=== PATIENT | male | born 1985 | race Caucasian/White ===

== ENCOUNTER → 2016-08-02 | Outpatient (CLI) | payer OTHER ==
--- NOTE | 2016-08-03 04:11 | REP ---
Clinical: Pain and venous insufficiency. Technique: Rousseau scale and color Doppler evaluation using linear high frequency transducer. Findings: Ultrasound examination of the right lower extremity deep venous structures from the common femoral vein to the popliteal vein demonstrates normal compressibility flow and wave patterns in response to respiration and augmentation. There is no evidence for deep venous thrombosis. Reflux study demonstrates normal vasculature without evidence for reflux or collateral vessels. Impression: No evidence for deep venous thrombosis. No evidence for venous insufficiency/reflux. Signed by Thompson Hutchinson MD 08/03/2016 04:03 A
== END ==
LOC: M RAD 12:57
PROVIDERS: ATTEND Nurse Practitioner Family
DX: R60.0 Localized edema (principal)

== ENCOUNTER → 2016-08-05 | Outpatient (CLI) | payer OTHER ==
--- NOTE | 2016-08-06 06:03 | REP ---
Clinical: Edema and lower extremity pain . Technique: Rousseau scale and color Doppler evaluation using linear high frequency transducer. Findings: Ultrasound examination of the left lower extremity deep venous structures from the common femoral vein to the popliteal vein demonstrates normal compressibility flow and wave patterns in response to respiration and augmentation. There is no evidence for deep venous thrombosis. Reflux evaluation demonstrates normal flow patterns and direction through the deep venous structures, and greater saphenous vein. Impression: No evidence for deep venous thrombosis. No evidence for reflux disease or insufficiency. Signed by Thompson Hutchinson MD 08/06/2016 05:54 A
== END ==
LOC: M RAD 11:47
PROVIDERS: ATTEND Nurse Practitioner Family
DX: R60.0 Localized edema (principal)

== ENCOUNTER → 2016-08-31 | Outpatient (REF) | payer OTHER ==
[2016-08-31 12:22] LABS: BASO % 0.5 % (0.0-1.0); EOS # 0.1 K/mm3 (0.0-0.50); EOS % 1.6 % (0.0-3.0); LARGE UNSTAINED CELL # 0.2 K/mm3 (0.0-0.4); LARGE UNSTAINED CELL % 2.2 % (0.0-4.0); LYMPH # 3.2 K/mm3 (1.5-6.5); LYMPH % 43.1 % (24.0-44.0); MEAN CORPUSCULAR HGB CONC 33.6 g/dl (32.0-36.5); MEAN CORPUSCULAR VOLUME 95.2 fl (80.0-96.0); MONO # 0.6 K/mm3 (0.0-0.8); MONO % 7.3 % (0.0-5.0); NEUTROPHILS # 3.4 K/mm3 (1.8-7.7); NEUTROPHILS % 45.3 % (36.0-66.0); PLATELET COUNT, AUTOMATED 319 k/mm3 (150-450); RED CELL DISTRIBUTION WIDTH 12.7 % (11.5-14.5); WHITE BLOOD COUNT 7.5 K/mm3 (4.0-10.0)
[2016-08-31 12:44] LABS: ALBUMIN 3.8 GM/DL (3.2-5.2); ALBUMIN/GLOBULIN RATIO 1.23 (1.00-1.93); ALKALINE PHOSPHATASE 28 U/L (45-117); ALT/SGPT 53 U/L (12-78); ANION GAP 6 MEQ/L (8-16); AST/SGOT 24 U/L (15-37); BILIRUBIN,TOTAL 0.6 MG/DL (0.2-1.0); BLOOD UREA NITROGEN 13 MG/DL (7-18); CALCIUM LEVEL 8.5 MG/DL (8.5-10.1); CARBON DIOXIDE LEVEL 30 MEQ/L (21-32); CHLORIDE LEVEL 106 MEQ/L (98-107); CHOLESTEROL LEVEL 187 MG/DL (<200); CREATININE FOR GFR 0.77 MG/DL (0.70-1.30); GLOMERULAR FILTRATION RATE > 60.0 (>60); GLUCOSE, FASTING 83 MG/DL (70-105); POTASSIUM SERUM 4.4 MEQ/L (3.5-5.1); SODIUM LEVEL 142 MEQ/L (136-145); TOTAL PROTEIN 6.9 GM/DL (6.4-8.2); TRIGLYCERIDES LEVEL 227 MG/DL (<150)
== END ==
LOC: M SFHCPLAZ 08:50
PROVIDERS: ATTEND Nurse Practitioner Family
DX: F41.8 Other specified anxiety disorders (principal); R60.0 Localized edema; E66.01 Morbid (severe) obesity due to excess calories

== ENCOUNTER → 2016-09-17 | Outpatient (CLI) | payer OTHER ==
[~2016-09-17] MED LIST: ALBU83IN INH; BACL10TA2 PO; HYDR25T PO; IPRASOL4 IN; NAPR500T PO; PRED20TA PO; TESS100C PO; meloxicam
--- NOTE | 2016-09-21 23:45 | ECWPNPC ---
PATIENT NAME: SEFERINO PABLO : 1985 GENDER: MALE VISIT DATE: 09/17/2016 DISCHARGE DATE: 09/17/16 1439 VISIT LOCKED DATE TIME: PHYSICIAN: AUGUSTIN LEVIN RESOURCE: AUGUSTIN LEVIN REASON FOR APPOINTMENT 1. THORACIC BACK PAIN HISTORY OF PRESENT ILLNESS NEW PATIENT CONSULT: WHEN DID YOUR PAIN FIRST START? . BRIEFLY DESCRIBE HOW YOUR PAIN STARTED? . HOW DOES YOUR PAIN CHANGE WITH TIME? . DOES YOUR PAIN AWAKEN YOU FROM SLEEP? . HOW MANY HOURS OF SLEEP DO YOU NORMALLY GET? . ANY DIAGNOSTIC TESTING? . FACILITY WHERE TESTS WERE DONE? ____. PAIN TREATMENT TREATMENT YES CANCER HAVE YOU EVER HAD ANY TYPE OF CANCER?NO NO. PAIN SCREENING: PATIENT HAS A COMPLAINT OF ACUTE OR CHRONIC PAIN :YES FALL RISK SCREENING: SCREENING :NO FALLS IN THE PAST YEAR PEARSON INVENTORY: QUESTIONNAIRE ASSESSEDYES SCORE VALUE CALCULATED YES SCORE: 24/63 NOTES SADNESS AND ANXIETY - DENIES SUICIDAL OR HOMICIDAL IDEATION TODAY'S VISIT: NOTES: REFERRED TO [facility] BY SILVA FERNANDEZ NP FOR MID THORACIC PAIN . HAS BEEN HAVING PAIN FOR 4-5 YEARS AND THIS HAS BEEN GETTING UNCONTROLLABLE FOR THE LAST 6 MONTHS. NOTES INCREASED PAIN WITH PROLONGED STANDING, SITTING. NO POSITION IS REALLY COMFORTABLE. SLEEP IS DISRUPTED. PAIN IS CENTERED ON SPINE AND FEELS LIKE A REALLY TWISTED. STATES FEELS SHARP AND STABBING PAIN ON THE SPINE. HAS PAIN INTO LEFT BUTTUCK AND COCCYX BUT NOT TO LEGS. NO N/T IN LEGS. IS HAAVING RIB DISCOMFORT FROM "MISPLACED RIBS" IN LOWER RIB CAGE. WAS SEEN BY CHIROPRACTER AND WAS TREATED BY PHYSICAL THERAPY.. GETS NECK PAIN AND ASSOCIATED HEADACHES. NO NUMBNESS/TINGLINGT INTO HANDS. REPORTS PAIN IN BACK AND RIBS WITH DEEP BREATH. HAS HAD SEVERAL INJURIES TO NECK AND BACK A TEEN. HAS BEEN TREATED WITH A NECK BRACE SEVERAL TIMES AFTER INJURIES. RATES PAIN LEVEL TODAY 9/10. DESCRIBES PAIN CONSTANT, SHARP, ACHING, SHOOTING, THROBBING AND SORE. PAIN IS CENTERED AT BASE OF NECK AND DOWN THE CENTER THORACIC SPINE.. CURRENT MEDICATIONS TAKING MELOXICAM 7.5 MG TABLET 1 TABLET ORALLY ONCE A DAY, NOTES: JUST STARTING ON THIS TAKING ACETAMINOPHEN EXTRA STRENGTH 500 MG TABLET 1 TABLET NEEDED ORALLY EVERY 6 HRS NOT-TAKING CYCLOBENZAPRINE HCL 10 MG TABLET 1 TABLET NEEDED ORALLY THREE TIMES A DAY, NOTES: DID NOT WORK AT ALL NOT-TAKING IBUPROFEN 200 MG TABLET 1 TABLET WITH FOOD OR MILK NEEDED ORALLY EVERY 6 HRS NOT-TAKING DICLOFENAC SODIUM 75 MG TABLET DELAYED RELEASE 1 TABLET ORALLY TWICE A DAY NOT-TAKING ROBAXIN-750 750 MG TABLET 1 TABLET ORALLY EVERY 4 HRS MEDICATION LIST REVIEWED AND RECONCILED WITH THE PATIENT PAST MEDICAL HISTORY PSORIASIS (DIAGNOSED 2009) CHILDHOOD ASTHMA ALLERGIES SULFA (FOR ALLERGY USE ONLY): RASH: ALLERGY PERTUSSIS: NEAR A CHILD: ALLERGY MINT: RASH AROUND LIPS: ALLERGY RED DYE: RASH: ALLERGY SURGICAL HISTORY TONSILLECTOMY 1995 FAMILY HISTORY FATHER: ALIVE 56 YRS, THYROID DISORDER MOTHER: ALIVE 50 YRS, HTN, INCREASED ICP, BRAIN SURGERY RECENTLY, PSUEDOTUMOR CEREBRI MATERNAL GRAND FATHER: DE (A TOTAL OF 25) AT AGE 65, FIRST AROUND 40. MATERNAL AUNT: DMT1 SOCIAL HISTORY GENERAL: TOBACCO USE ARE YOU A:CURRENT SMOKER HOW MANY CIGARETTES A DAY DO YOU SMOKE?6-10 HOW OFTEN DO YOU SMOKE CIGARETTES?EVERY DAY PATIENT COUNSELED ON THE DANGERS OF TOBACCO USE AND URGED TO QUIT:09/17/2016 ARE YOU INTERESTED IN QUITTING?READY TO QUIT COUNSELED THE PATIENT ON TOBACCO USE, CESSATION MHCICEFY58/23/2017 ALCOHOL SCREENING POINTS0 INTERPRETATIONNEGATIVE CAFFEINE CAFFEINE USE?YES BAPTIST [id number] ISLAM LANGUAGE LANGUAGES SPOKEN:CZECH LEARNING BARRIERS / SPECIAL NEEDS HEARING IMPAIRED?NO VISION IMPAIRED?NO READINESS TO LEARN?YES PAIN CLINIC PFS, CLERGY, PUBLIC HEALTH REFERRALS PFS REFERRAL NEEDED?NO CLERGY REFERRAL NEEDED?NO PUBLIC HEALTH REFERRAL NEEDED?NO WAS THE PROVIDER NOTIFIED OF ANY PERTINENT INFO?NO HAS THE PATIENT BEEN EDUCATED REGARDING HIS/HER PLAN OF CARE?YES HAS THE PATIENT BEEN EDUCATED REGARDING PAIN, THE RISK FOR PAIN, THE IMPORTANCE OF EFFECTIVE PAIN MANAGEMENT, AND THE PAIN ASSESSMENT PROCESS?YES PATIENT: ____. ADVANCE DIRECTIVES HEALTH CARE PROXY?NO WOULD YOU LIKE MORE INFORMATION?NO DOES NOT CURRENTLY HAVE PAPERWORK BUT IS PLANNING TO WORK ON THIS WITH HIS FAMILY SOON. HOSPITALIZATION/MAJOR DIAGNOSTIC PROCEDURE REACTION TO PERTUSSIS REVIEW OF SYSTEMS REVIEWED BY: PROVIDER: AUGUSTIN KENNY . CONSTITUTIONAL: ANY CHANGE IN YOUR MEDICAL CONDITION? NO . CHILLS NO . FEVER NO . INFECTION: DO YOU HAVE NEW INFECTIONS? NO . DO YOU HAVE HISTORY OF MRSA? NO . MUSCULOSKELETAL: ANY NEW PATTERNS OF PAIN OR NUMBNESS? YES, NECK PAIN CAUSING HEADACHES . SYTEMIC LUPUS NO . GASTROENTEROLOGY: ANY NEW CHANGE IN BOWEL CONTROL? NO . BARRETTS ESOPHAGUS NO . CIRRHOSIS NO . HEPATITIS NO . LIVER FAILURE NO . ACID REFLUX NO . UNEXPLAINED WEIGHT LOSS NO, IS WORKING TO LOSE WEIGHT (NO CREAM OR SUGAR IN COFFEE) . GENITOURINARY: ANY NEW CHANGE IN BLADDER CONTROL? NO . IS THERE A CHANCE YOU COULD BE ? NO . HEMATOLOGY/LYMPH: DO YOU TAKE ANY BLOOD THINNERS? (FOR EXAMPLE- COUMADIN, PLAVIX, AGGRENOX, PLATEL, PRADAXA, OR XARELTO) NO . WHEN WAS YOUR LAST DOSE? DATE: TIME: . LOW PLATELET COUNT NO . SICKLE CELL DISEASE NO . VON WILLIEBRANDS NO . FACTOR V LEIDEN NO . THALLASEMIA NO . ANEMIA NO . EASY BRUISING NO . NEUROLOGY: HAVE YOU FALLEN IN THE PAST 6 MONTHS? NO . ANY NEW EXTREMITY NUMBNESS OR WEAKNESS? NO . HEAD INJURY NO . DEMENTIA NO . CEREBRAL PALSY NO . MULTIPLE SCLEROSIS NO . DIZZINESS NO . HEADACHE YES, ASSOCIATED WITH NECK PAIN . STROKES NO . VERTIGO NO . CARDIOLOGY: DO YOU HAVE A PACEMAKER OR DEFIBRILLATOR? NO . ANGINA NO . HEART ATTACK NO . HEART SURGERY NO . CONGESTIVE HEART FAILURE/FLUID OVERLOAD NO . CHEST PAIN NO . HIGH BLOOD PRESSURE NO , HE DOES NOT HAVE BUT YES IN FAMILY HISTORY . IRREGULAR HEART BEAT NO . RESPIRATORY: HAVE YOU BEEN SICK IN THE PAST WEEK? NO . FEVER NO . FLU LIKE SYMPTOMS? NO . CPAP NO . BYPAP NO . ASTHMA YES . EMPHYSEMA NO . CHRONIC LUNG DISEASES NO . SHORTNESS OF BREATH ON EXERTION NO . DO YOU USE ANY TYPE OF TOBACCO (SMOKE, SMOKELESS, CHEW)? YES, CURRENTLY SMOKING 10 PER DAY (DOWN FROM A PACK A DAY) AND WORKING ON QUITTING SMOKING (ON HIS OWN TERMS). . COUGH NO . SNORING NO . INTEGUMENTARY: DO YOU HAVE ANY RASHES OR OPEN SORES? CAT BITES AND PT HAS PSORIASIS ESPECIALLY ON HIS HANDS . ALLERGIC/IMMUNO: ARE YOU ALLERGIC TO SHELLFISH OR IV DYE? NO . ANY NEW ALLERGIES? NO . PSYCHIATRIC: DO YOU HAVE THOUGHTS OF HURTING YOURSELF OR SOMEONE ELSE? NO . ARE YOU ABUSED, NEGLECTED, OR IN AN UNSAFE ENVIRONMENT? NO HAS HX OF MODERATE TO SEVERE DEPRESSION AND WAS ON HYDROXYZINE BUT NOT FOR PAST 2 MONTHS. (UNAWARE OF THE DOSE) HAS HX OF PANIC ATTACKS . ENDOCRINOLOGY: ARE YOU DIABETIC? NO . THYROID DISORDER NO . OTHER: DO YOU NEED ANY PRESCRIPTIONS? NO . IF YES, PLEASE LIST: ____ . ANY NEW PROBLEMS WITH YOUR MEDICATIONS? NO . WHEN DID YOU LAST EAT? ____ . WHEN DID YOU LAST DRINK? ____ . WHAT DID YOU LAST DRINK? ____ . NAME OF PERSON DRIVING YOU HOME? ____ . DO YOU HAVE ANY OTHER QUESTIONS OR CONCERNS NO . PSYCHOLOGY: HIGH STRESS LEVEL HAS BEEN VERY ACTIVE IN THE CARE AND SUPPORT OF HIS MOM WITH HER RECENT ILLNESS . VITAL SIGNS WT 299.6 LBS, HT 75.25 IN, BMI 37.19 INDEX, BP 133/82 MM HG, HR 76 /MIN, RR 16 /MIN, TEMP 98.9 F, OXYGEN SAT % 95%, NA INITIALS TR 1302, REVIEWED BY: NL. EXAMINATION GENERAL EXAMINATION: GENERAL APPEARANCE:OBESE, WEARING GLOVES ON BOTH HANDS. PSYCHQUIET, , ALERT , ORIENTED X 3 , APPROPRIATE MOOD AND AFFECT , GOOD EYE CONTACT, GOOD HISTORIAN. HEENT:NORMOCEPHALIC, NO LYMPHADENOPATHY, NO THYROMEGLY. LUNGS:CLEAR TO AUSCULTATION AND PERCUSSION, NO WHEEZES, RALES OR RHONCHI. , DECREASED AIR ENTRY AT BASES WITH DECREASED THORACIC EXPANSION OF CHEST WALL. HEART:HEART RATE REGULAR, NO CAROTID BRUITS, , NORMAL S1S2, NO MURMURS, CLICK OR RUBS. MUSCULOSKELETAL:POINT TENDERNESS OVER THORACIC SPINOUS PROCESSES AT T5-7 AND LUMBAR SPINOUS PROCESSES AT L4-5 REGION . ABLE TO FLEX AND EXTEND THE SPINE ONLY 10 DEGREES. HOLDS POSTURE VERY STIFFLY. TRIGGER POINTS: AND TIGHT FIBROUS BANDS IDENTIFIED OVER MID THORACIC PARASPINOUS MUSCLES AND ALONG THE SCAPULA BILATERALLY. MUSCLE STRENGTH TESTING 5/5 BILATERAL UPPER AND LOWER EXTREMITIES, GAIT ANTALGIC WITH LEFT FOOT/ANKLE ROLLING AND WEAKNESS. PROMOTIONS INTERN STRENGTH EQUAL AND STRONG. SKIN:SCALY PSORIASIS PLAQUES NOTED ACROSS THE PALMS BILATERALLY.. NEUROLOGIC EXAM:CN'S II-XII GROSSLY INTACT. PATCHY DYSESTHESIS NOTES OVER RIGHT FOREAAM AND LEFT CALF. DTR'S 3+BILATERALLY IN UPPER AND LOWER EXTREMITIES. PLANTAR RESPONSE IS FLEXOR. NO CLONUS.. ASSESSMENTS NECK PAIN - M54.2 (PRIMARY) THORACIC SPINE PAIN - M54.6 CERVICAL RADICULOPATHY DUE TO INTERVERTEBRAL DISC DISORDER - M50.10 THORACIC RADICULOPATHY - M54.14 TREATMENT NECK PAIN START BACLOFEN TABLET, 10 MG, 1 TABLET WITH FOOD OR MILK, ORALLY, BID, 30 DAY(S), 60 TABLET, REFILLS 2 START HYDROXYZINE HCL TABLET, 25 MG, 1 TABLET NEEDED, ORALLY, EVERY 8 HRS, 30 DAY(S), 90, REFILLS 1 LAB: ERYTHROCYTE SEDIMENTATION RATE LAB: LUPUS TYPE ANTICOAGULANT SCREE LAB: RHEUMATOID FACTOR QUANT LAB: RALF TITER & PATTERN [facility] MRI SPINE, CERVICAL WITHOUT [id number],SUSAN M 09/17/2016 2:26:02 PM > DECREASED CERVICAL ROM, CERVICAL RADICULOPATHY [facility] MRI SPINE,THORACIC WITHOUT [id number],SUSAN M 09/17/2016 2:26:41 PM > THORACIC PAIN/RADICULOPATHY CLINICAL NOTES: DISCUSSED OPTIONS FOR TREATMENT WITH SEFERINO - ROSANNE STATES HE IS VERY AFRAID OF NEEDLES AND AT THIS TIME IS NOT INTERESTED IN INTERVENTIONAL TREATMENT. HE HADS BEEN TRIALED WITH MUSCLE RELAXERS AND NSAIDS FR MORE THAN 6 WEEKS WEEKS WELL PHYSICAL THERAPY. AT THIS TIME WE ARE RESPECTFULLY REQUESTING AUTHORIZATION FOR MRI OF CERVICAL AND THORACIC MRI. HE HAS HAD MULTIPLE TRAUMAS TO THE NECK AND CHEST AND SIGNIFICANT PSORIASIS. HE HAS A FAMILY HISTORY OF AUTOIMMUNE DISEASE. PROCEDURE CODES FA211 ESTABILISHED PATIENT [facility] CHARGE DISPOSITION & COMMUNICATION FOLLOW UP 1 MONTH (REASON: CHECK AUTH FOR MRI OF THORACIC AND LUMBAR SPINE) ELECTRONICALLY SIGNED BY MILAGROS SHARMA ON 09/21/2016 AT 09:06 AM EDT DISCLAIMER : THIS IS A VISIT SUMMARY EXTRACTED FROM THE [employer] [employer] CHART. IT IS NOT A COPY OF THE [facility] [employer] PROGRESS NOTE. SANDRITA
== END | disposition home or self-care (01) ==
LOC: M PAIN 13:20
PROVIDERS: ATTEND Nurse Practitioner Family
DX: G89.29 Other chronic pain (principal); M54.6 Pain in thoracic spine; M50.10 Cervical disc disorder with radiculopathy, unspecified cervical region; L40.9 Psoriasis, unspecified; Z79.899 Other long term (current) drug therapy; Z88.2 Allergy status to sulfonamides; Z88.8 Allergy status to other drugs, medicaments and biological substances; Z91.018 Allergy to other foods; F17.210 Nicotine dependence, cigarettes, uncomplicated

== ENCOUNTER 2016-09-20 15:34 | Emergency (ER) | payer OTHER ==
[~2016-09-20] VITALS: Ht 193 cm; Wt 132.9 kg
[2016-09-20] MEDS ORDERED: BACL10TA2 PO (15:50)
[2016-09-20] MEDS ORDERED: HYDR-3363 PO (15:50)
[2016-09-20] MEDS ORDERED: meloxicam (15:50)
[2016-09-20] MEDS ORDERED: IPRATROPIUM 0.5MG/ALBUTEROL 2.5MG INH SOL UD 3ML (DUONEB)(J7620) NEB ONE ×2 (16:15→16:45)
[2016-09-20] MEDS ORDERED: NAPROXEN 250 MG TAB PO ONE (16:15)
--- NOTE | 2016-09-20 16:40 | REP ---
Clinical: Shortness of breath with cough and fever . Comparison: 12/12/2015 . Technique: PA and lateral. Findings: The mediastinum and cardiac silhouette are normal. The lung gaines are clear and without acute consolidation, effusion, or pneumothorax. The skeletal structures are intact and normal. Impression: 1. No acute cardiopulmonary process. Signed by Thompson Hutchinson MD 09/20/2016 04:31 P
[2016-09-20] MEDS ORDERED: predniSONE 20 MG TAB PO ONE (16:45)
[2016-09-20] MEDS ORDERED: PRED20TA PO (17:13)
[2016-09-20] MEDS ORDERED: IPRASOL4 IN (17:13)
[2016-09-20] MEDS ORDERED: ALBU83IN INH (17:13)
[2016-09-20] MEDS ORDERED: TESS100C PO (17:13)
[2016-09-20] MEDS ORDERED: NAPR500T PO (17:13)
[2016-09-20 17:21] VITALS: BP 130/76
== END 2016-09-20 17:23 | disposition home or self-care (01) ==
LOC: M ED 16:27
DX: F17.210 Nicotine dependence, cigarettes, uncomplicated (principal); J40 Bronchitis, not specified as acute or chronic; J45.909 Unspecified asthma, uncomplicated; G89.29 Other chronic pain; M54.9 Dorsalgia, unspecified; Z79.899 Other long term (current) drug therapy; Z91.018 Allergy to other foods; Z88.7 Allergy status to serum and vaccine

== ENCOUNTER 2016-09-30 15:16 | Emergency (ER) | payer OTHER ==
[~2016-09-30] VITALS: Ht 193 cm; Wt 136.7 kg
[~2016-09-30 15:16] MED LIST changes: +HYDR-3363 PO; -HYDR25T PO
[2016-09-30 15:17] VITALS: BP 132/77
[2016-09-30] MEDS ORDERED: IPRATROPIUM 0.5MG/ALBUTEROL 2.5MG INH SOL UD 3ML (DUONEB)(J7620) NEB ONE (15:45)
--- NOTE | 2016-09-30 16:06 | REP ---
Chest two views HISTORY: Cough Comparison: 09/20/2016 The lungs are clear. The heart is normal in size. The pulmonary vasculature is normal in appearance. The bony structure is intact. IMPRESSION: No acute disease. Signed by Flakito Gaston MD 09/30/2016 03:57 P
[2016-09-30] MEDS ORDERED: TESS100C PO (16:17)
[2016-09-30] MEDS ORDERED: ZITHTAB PO (16:17)
[2016-09-30] MEDS ORDERED: LIDO2SOL10 MT (16:17)
[2016-09-30] MEDS ORDERED: ALBU83IN INH (16:17)
== END 2016-09-30 16:05 | disposition home or self-care (01) ==
LOC: M ED 15:16
DX: J20.9 Acute bronchitis, unspecified (principal); J45.909 Unspecified asthma, uncomplicated; E66.9 Obesity, unspecified; F17.210 Nicotine dependence, cigarettes, uncomplicated; Z88.2 Allergy status to sulfonamides; Z91.02 Food additives allergy status; Z91.018 Allergy to other foods; Z88.7 Allergy status to serum and vaccine; Z79.899 Other long term (current) drug therapy

== ENCOUNTER → 2016-10-13 | Outpatient (CLI) | payer OTHER ==
[~2016-10-13] MED LIST changes: +LIDO2SOL10 MT; +ZITHTAB PO
--- NOTE | 2016-10-14 08:33 | REP ---
MRI CERVICAL SPINE WITHOUT CONTRAST: HISTORY: Neck pain. A disc bulge is present at the C3-4 level. There is minimal effacement of the thecal sac without spinal cord compression. The C3 neural foramina are patent. A disc bulge is present at the C4-5 level. There is minimal effacement of the thecal sac without spinal cord compression. The C4 neural foramina are patent. A disc bulge is present at the C5-6 level. There is minimal effacement of the thecal sac without spinal cord compression. The C5 neural foramina are patent. A disc bulge is present at the C6-7 level. There is minimal effacement of the thecal sac without spinal cord compression. The C6 neural foramina are patent. There is no other disc bulge or herniation. The remaining neural foramina are patent. The spinal cord is normal in signal intensity. Normal signal intensity is present in the cervical vertebral bodies. IMPRESSION: There is cervical spondylosis at the C3-4 through C6-7 levels without spinal cord compression. Signed by Flakito Gaston MD 10/14/2016 08:53 A
--- NOTE | 2016-10-14 08:34 | REP ---
MRI THORACIC SPINE WITHOUT CONTRAST: HISTORY: Neck pain. The spinal canal is congenitally small. There is no disc bulge or herniation. The spinal canal and neural foramina are patent. The spinal cord is normal in signal intensity. Normal signal intensity is present in the thoracic vertebral bodies. IMPRESSION: There is no disc bulge or herniation. Signed by Flakito Gaston MD 10/14/2016 08:53 A
== END ==
LOC: M RAD 16:50
PROVIDERS: ATTEND Nurse Practitioner Family
DX: M54.2 Cervicalgia (principal)

== ENCOUNTER → 2016-10-15 | Outpatient (CLI) | payer OTHER ==
--- NOTE | 2016-11-12 01:58 | ECWPNPC ---
PATIENT NAME: SEFERINO PABLO : 1985 GENDER: MALE VISIT DATE: 10/15/2016 DISCHARGE DATE: 10/15/16 1222 VISIT LOCKED DATE TIME: PHYSICIAN: AUGUSTIN LEVIN RESOURCE: AUGUSTIN LEVIN REASON FOR APPOINTMENT 1. THORACIC/LUMBAR SPINE HISTORY OF PRESENT ILLNESS HISTORY OF PRESENT ILLNESS: PAIN THE PATIENT DESCRIBES THE PAIN... FALL RISK SCREENING: SCREENING :NO FALLS IN THE PAST YEAR TODAY'S VISIT: NOTES: ONSET OF BRONCHITIS 3 WEEKS AGO AND WAS COUGHING WITH INCREASED AND INTENSE PAIN IN RIGHT RIBS. NO RASH. RATES PAIN /10 / DESCRIBES PAIN CONSTANT, SHARP STABBING AND SHOOTING. . CURRENT MEDICATIONS TAKING MELOXICAM 7.5 MG TABLET 1 TABLET ORALLY ONCE A DAY, NOTES: JUST STARTING ON THIS TAKING ACETAMINOPHEN EXTRA STRENGTH 500 MG TABLET 1 TABLET NEEDED ORALLY EVERY 6 HRS TAKING BACLOFEN 10 MG TABLET 1 TABLET WITH FOOD OR MILK ORALLY BID TAKING HYDROXYZINE HCL 25 MG TABLET 1 TABLET NEEDED ORALLY EVERY 8 HRS TAKING NAPROSYN 250 MG TABLET 1 TABLET ORALLY TWICE A DAY TAKING ALBUTEROL SULFATE 0.63 MG/3ML NEBULIZATION SOLUTION 3 ML NEEDED INHALATION EVERY 6 HRS, NOTES: FOR BRONCHIATUS NOT-TAKING CYCLOBENZAPRINE HCL 10 MG TABLET 1 TABLET NEEDED ORALLY THREE TIMES A DAY, NOTES: DID NOT WORK AT ALL NOT-TAKING IBUPROFEN 200 MG TABLET 1 TABLET WITH FOOD OR MILK NEEDED ORALLY EVERY 6 HRS NOT-TAKING DICLOFENAC SODIUM 75 MG TABLET DELAYED RELEASE 1 TABLET ORALLY TWICE A DAY NOT-TAKING ROBAXIN-750 750 MG TABLET 1 TABLET ORALLY EVERY 4 HRS MEDICATION LIST REVIEWED AND RECONCILED WITH THE PATIENT PAST MEDICAL HISTORY PSORIASIS (DIAGNOSED 2009) CHILDHOOD ASTHMA ALLERGIES SULFA (FOR ALLERGY USE ONLY): RASH: ALLERGY PERTUSSIS: NEAR A CHILD: ALLERGY MINT: RASH AROUND LIPS: ALLERGY RED DYE: RASH: ALLERGY REVIEW OF SYSTEMS REVIEWED BY: PROVIDER: AUGUSTIN KENNY . CONSTITUTIONAL: ANY CHANGE IN YOUR MEDICAL CONDITION? NO . CHILLS NO . FEVER NO . INFECTION: DO YOU HAVE NEW INFECTIONS? NO . DO YOU HAVE HISTORY OF MRSA? NO . MUSCULOSKELETAL: ANY NEW PATTERNS OF PAIN OR NUMBNESS? YES, RIGHR RIB AREA AND INTO BACK FOR PAST 4-5 DAYS / PROBABLY RELATED TO COUGHING SO MUCH . GASTROENTEROLOGY: ANY NEW CHANGE IN BOWEL CONTROL? NO . GENITOURINARY: ANY NEW CHANGE IN BLADDER CONTROL? NO . IS THERE A CHANCE YOU COULD BE ? NO . HEMATOLOGY/LYMPH: DO YOU TAKE ANY BLOOD THINNERS? (FOR EXAMPLE- COUMADIN, PLAVIX, AGGRENOX, PLATEL, PRADAXA, OR XARELTO) NO . WHEN WAS YOUR LAST DOSE? DATE: TIME: . NEUROLOGY: HAVE YOU FALLEN IN THE PAST 6 MONTHS? NO . ANY NEW EXTREMITY NUMBNESS OR WEAKNESS? NO . CARDIOLOGY: DO YOU HAVE A PACEMAKER OR DEFIBRILLATOR? NO . RESPIRATORY: HAVE YOU BEEN SICK IN THE PAST WEEK? YES, BRONCHIATUS WITH SEVERE COUGHING . FEVER NO . FLU LIKE SYMPTOMS? NO . COUGH NO . INTEGUMENTARY: DO YOU HAVE ANY RASHES OR OPEN SORES? NO . ALLERGIC/IMMUNO: ARE YOU ALLERGIC TO SHELLFISH OR IV DYE? NO . ANY NEW ALLERGIES? NO . PSYCHIATRIC: DO YOU HAVE THOUGHTS OF HURTING YOURSELF OR SOMEONE ELSE? NO . ARE YOU ABUSED, NEGLECTED, OR IN AN UNSAFE ENVIRONMENT? NO . ENDOCRINOLOGY: ARE YOU DIABETIC? NO . OTHER: DO YOU NEED ANY PRESCRIPTIONS? NO . IF YES, PLEASE LIST: ____ . ANY NEW PROBLEMS WITH YOUR MEDICATIONS? NO . WHEN DID YOU LAST EAT? ____ . WHEN DID YOU LAST DRINK? ____ . WHAT DID YOU LAST DRINK? ____ . NAME OF PERSON DRIVING YOU HOME? ____ . DO YOU HAVE ANY OTHER QUESTIONS OR CONCERNS NO . VITAL SIGNS WT 295 LBS, HT 75.25 IN, BMI 36.62 INDEX, BP 122/82 MM HG, HR 69 /MIN, RR 16 /MIN, TEMP 97.2 F, OXYGEN SAT % 94%, NA INITIALS TL 1157. EXAMINATION GENERAL EXAMINATION: CHEST:EXQUISITELY TENDER ACROSS RIGHT POST ERIOR CHEST WALL.. LUNGS:BILATERAL WHEEZES, RIGHT > LEFT. CERVICALPOINT TENDER OVER MID CERVICAL SPINOUS PROCESSES. ASSESSMENTS NECK PAIN - M54.2 (PRIMARY) THORACIC SPINE PAIN - M54.6 CERVICAL RADICULOPATHY DUE TO INTERVERTEBRAL DISC DISORDER - M50.10 THORACIC RADICULOPATHY - M54.14 TREATMENT NECK PAIN START TRAMADOL HCL TABLET, 50 MG, 1 TABLET NEEDED, ORALLY, EVERY 4 HRS PRN PAIN MDD=2, 30 DAY(S), 60, REFILLS 1 NOTES: DO SHOULDER ROLLS AND CHIN TUCK EXERCISES EVERY DAY. PROCEDURE CODES FA211 ESTABILISHED PATIENT [facility] CHARGE DISPOSITION & COMMUNICATION FOLLOW UP 2 MONTHS (REASON: NECK THORACIC PAIN) ELECTRONICALLY SIGNED BY MILAGROS SHARMA ON 11/11/2016 AT 07:55 PM EDT DISCLAIMER : THIS IS A VISIT SUMMARY EXTRACTED FROM THE [employer] CHART. IT IS NOT A COPY OF THE [employer] PROGRESS NOTE. SANDRITA
== END ==
LOC: M PAIN 10:40
PROVIDERS: ATTEND Nurse Practitioner Family
DX: M54.2 Cervicalgia (principal); M54.6 Pain in thoracic spine; G89.29 Other chronic pain; Z79.899 Other long term (current) drug therapy; Z88.2 Allergy status to sulfonamides; Z91.048 Other nonmedicinal substance allergy status; Z91.018 Allergy to other foods

== ENCOUNTER → 2016-12-17 | Outpatient (CLI) | payer OTHER ==
--- NOTE | 2017-01-15 01:00 | ECWPNPC ---
PATIENT NAME: SEFERINO PABLO : 1985 GENDER: MALE VISIT DATE: 12/17/2016 DISCHARGE DATE: 12/17/16 1555 VISIT LOCKED DATE TIME: PHYSICIAN: AUGUSTIN LEVIN RESOURCE: AUGUSTIN LEVIN REASON FOR APPOINTMENT 1. THORACIC/NECK HISTORY OF PRESENT ILLNESS HISTORY OF PRESENT ILLNESS: PAIN THE PATIENT DESCRIBES THE PAIN... FALL RISK SCREENING: SCREENING :NO FALLS IN THE PAST YEAR TODAY'S VISIT: NOTES: RATES PAIN LEVEL TODAY 9/10. DESCRIBES PAIN CONSTANT, ACHING, SHARP AND STABBING SHOOTING AND THROBBING. MARKED INCREASE IN PAIN IN TAILBONE OVER LAST WEEK, AND OVER NECK, BACK AND RIBS WITH PAIN OVER LEFT SIDE OF NECK. NO FALLS OR INJERIES. CURRENT MEDICATIONS TAKING MELOXICAM 7.5 MG TABLET 1 TABLET ORALLY ONCE A DAY, NOTES: JUST STARTING ON THIS TAKING ACETAMINOPHEN EXTRA STRENGTH 500 MG TABLET 1 TABLET NEEDED ORALLY EVERY 6 HRS TAKING BACLOFEN 10 MG TABLET 1 TABLET WITH FOOD OR MILK ORALLY BID TAKING NAPROSYN 250 MG TABLET 1 TABLET ORALLY TWICE A DAY TAKING ALBUTEROL SULFATE 0.63 MG/3ML NEBULIZATION SOLUTION 3 ML NEEDED INHALATION EVERY 6 HRS, NOTES: FOR BRONCHIATUS TAKING TRAMADOL HCL 50 MG TABLET 1 TABLET NEEDED ORALLY EVERY 6 HRS PRN MDD2 TAKING TRAMADOL HCL 50 MG TABLET 1 TABLET NEEDED ORALLY EVERY 4 HRS PRN PAIN MDD=2 TAKING HYDROXYZINE HCL 25 MG TABLET 1 TABLET NEEDED ORALLY EVERY 8 HRS NOT-TAKING CYCLOBENZAPRINE HCL 10 MG TABLET 1 TABLET NEEDED ORALLY THREE TIMES A DAY, NOTES: DID NOT WORK AT ALL NOT-TAKING IBUPROFEN 200 MG TABLET 1 TABLET WITH FOOD OR MILK NEEDED ORALLY EVERY 6 HRS NOT-TAKING DICLOFENAC SODIUM 75 MG TABLET DELAYED RELEASE 1 TABLET ORALLY TWICE A DAY NOT-TAKING ROBAXIN-750 750 MG TABLET 1 TABLET ORALLY EVERY 4 HRS MEDICATION LIST REVIEWED AND RECONCILED WITH THE PATIENT PAST MEDICAL HISTORY PSORIASIS (DIAGNOSED 2009) CHILDHOOD ASTHMA ALLERGIES SULFA (FOR ALLERGY USE ONLY): RASH: ALLERGY PERTUSSIS: NEAR A CHILD: ALLERGY MINT: RASH AROUND LIPS: ALLERGY RED DYE: RASH: ALLERGY SURGICAL HISTORY TONSILLECTOMY 1995 SOCIAL HISTORY GENERAL: TOBACCO USE ARE YOU A:CURRENT SMOKER HOW OFTEN DO YOU SMOKE CIGARETTES?EVERY DAY HOW MANY CIGARETTES A DAY DO YOU SMOKE?6-10 ARE YOU INTERESTED IN QUITTING?READY TO QUIT PATIENT COUNSELED ON THE DANGERS OF TOBACCO USE AND URGED TO QUIT:09/17/2016 COUNSELED THE PATIENT ON TOBACCO USE, CESSATION [id number]/23/2017 ALCOHOL SCREENING DID YOU HAVE A DRINK CONTAINING ALCOHOL IN THE PAST YEAR?NO POINTS0 INTERPRETATIONNEGATIVE CAFFEINE CAFFEINE USE?YES BUDDHIST [id number] BUDDHISM LANGUAGE LANGUAGES SPOKEN:BELARUSIAN LEARNING BARRIERS / SPECIAL NEEDS HEARING IMPAIRED?NO VISION IMPAIRED?NO READINESS TO LEARN?YES PAIN CLINIC PFS, CLERGY, PUBLIC HEALTH REFERRALS PFS REFERRAL NEEDED?NO CLERGY REFERRAL NEEDED?NO PUBLIC HEALTH REFERRAL NEEDED?NO WAS THE PROVIDER NOTIFIED OF ANY PERTINENT INFO?NO HAS THE PATIENT BEEN EDUCATED REGARDING HIS/HER PLAN OF CARE?YES HAS THE PATIENT BEEN EDUCATED REGARDING PAIN, THE RISK FOR PAIN, THE IMPORTANCE OF EFFECTIVE PAIN MANAGEMENT, AND THE PAIN ASSESSMENT PROCESS?YES PATIENT: ____. ADVANCE DIRECTIVES HEALTH CARE PROXY?NO WOULD YOU LIKE MORE INFORMATION?NO DOES NOT CURRENTLY HAVE PAPERWORK BUT IS PLANNING TO WORK ON THIS WITH HIS FAMILY SOON. HOSPITALIZATION/MAJOR DIAGNOSTIC PROCEDURE REACTION TO PERTUSSIS REVIEW OF SYSTEMS REVIEWED BY: PROVIDER: AUGUSTIN KENNY . CONSTITUTIONAL: ANY CHANGE IN YOUR MEDICAL CONDITION? NO . CHILLS NO . FEVER NO . INFECTION: DO YOU HAVE NEW INFECTIONS? NO . DO YOU HAVE HISTORY OF MRSA? NO . MUSCULOSKELETAL: ANY NEW PATTERNS OF PAIN OR NUMBNESS? YES, TAILBONE PAIN X1-2 WEEKS. PT CANNOT ASSOCIATE PAIN WITH ANY INJURIES OR ACTIVITIES. . GASTROENTEROLOGY: ANY NEW CHANGE IN BOWEL CONTROL? NO . GENITOURINARY: ANY NEW CHANGE IN BLADDER CONTROL? NO . IS THERE A CHANCE YOU COULD BE ? NO . HEMATOLOGY/LYMPH: DO YOU TAKE ANY BLOOD THINNERS? (FOR EXAMPLE- COUMADIN, PLAVIX, AGGRENOX, PLATEL, PRADAXA, OR XARELTO) NO . WHEN WAS YOUR LAST DOSE? DATE: TIME: . NEUROLOGY: HAVE YOU FALLEN IN THE PAST 6 MONTHS? NO . ANY NEW EXTREMITY NUMBNESS OR WEAKNESS? NO . CARDIOLOGY: DO YOU HAVE A PACEMAKER OR DEFIBRILLATOR? NO . RESPIRATORY: HAVE YOU BEEN SICK IN THE PAST WEEK? NO . FEVER NO . FLU LIKE SYMPTOMS? NO . COUGH NO . INTEGUMENTARY: DO YOU HAVE ANY RASHES OR OPEN SORES? NO . ALLERGIC/IMMUNO: ARE YOU ALLERGIC TO SHELLFISH OR IV DYE? NO . ANY NEW ALLERGIES? NO . PSYCHIATRIC: DO YOU HAVE THOUGHTS OF HURTING YOURSELF OR SOMEONE ELSE? NO . ARE YOU ABUSED, NEGLECTED, OR IN AN UNSAFE ENVIRONMENT? NO . ENDOCRINOLOGY: ARE YOU DIABETIC? NO . OTHER: DO YOU NEED ANY PRESCRIPTIONS? NO . IF YES, PLEASE LIST: ____ . ANY NEW PROBLEMS WITH YOUR MEDICATIONS? NO . WHEN DID YOU LAST EAT? ____ . WHEN DID YOU LAST DRINK? ____ . WHAT DID YOU LAST DRINK? ____ . NAME OF PERSON DRIVING YOU HOME? ____ . DO YOU HAVE ANY OTHER QUESTIONS OR CONCERNS NO . VITAL SIGNS WT 302 LBS, HT 75.25 IN, BMI 37.49 INDEX, BP 135/79 MM HG, HR 76 /MIN, RR 16 /MIN, TEMP 98.3 F, OXYGEN SAT % 97%, NA INITIALS SC 14:54, REVIEWED BY: ERIS. EXAMINATION GENERAL EXAMINATION: CHEST:EXQUISITELY TENDER ACROSS RIGHT POST ERIOR CHEST WALL. . LUNGS:BILATERAL WHEEZES, RIGHT > LEFT . MUSCULOSKELETAL:MUSCLE STRENGTH TESTING 5/5 BILATERAL UPPER AND LOWER EXTREMITIES. TENDER TO PALPATION OVER LUMBAR SPINOUS PROCESSES. SLOW TO RISE TO STANDING POSITION. POSTURE SLUMPED. GAIT NONANTALGIC. CERVICALPOINT TENDER OVER MID CERVICAL SPINOUS PROCESSES . SKIN:SCALY ERYTHEMATOUS PATCHES NOTED OVER BOTH HANDS. VINYL GLOVES WORN BILATERALY. ASSESSMENTS NECK PAIN - M54.2 (PRIMARY) THORACIC SPINE PAIN - M54.6 CERVICAL RADICULOPATHY DUE TO INTERVERTEBRAL DISC DISORDER - M50.10 THORACIC RADICULOPATHY - M54.14 TREATMENT NECK PAIN STOP MELOXICAM TABLET, 7.5 MG, 1 TABLET, ORALLY, ONCE A DAY, NOTES: JUST STARTING ON THIS STOP NAPROSYN TABLET, 250 MG, 1 TABLET, ORALLY, TWICE A DAY STOP TRAMADOL HCL TABLET, 50 MG, 1 TABLET NEEDED, ORALLY, EVERY 6 HRS PRN MDD2 STOP TRAMADOL HCL TABLET, 50 MG, 1 TABLET NEEDED, ORALLY, EVERY 4 HRS PRN PAIN MDD=2 START KETOROLAC TROMETHAMINE TABLET, 10 MG, 1 TABLET WITH FOOD OR MILK NEEDED, ORALLY, EVERY 8 HRS, 5 DAY(S), 15 TABLET, REFILLS 0 START NORCO TABLET, 10-325 MG, 1 TABLET NEEDED, ORALLY, Q 8 HRS PRN PAIN MDD=3, 30 DAY(S), 15, REFILLS 0 NOTES: STOP TRAMADOL FOR 5 DAYS WHILE TAKING HYDROCODONE. CLINICAL NOTES: ISTOP REGISTRY REVIEWED AND DEMNOSTRATES COMPLLIANCE. (REF# [id number]). PROCEDURE CODES FA211 ESTABILISHED PATIENT [facility] CHARGE DISPOSITION & COMMUNICATION FOLLOW UP 4-6 WEEKS (REASON: NECK/BACK PAIN) ELECTRONICALLY SIGNED BY MILAGROS SHARMA ON 01/14/2017 AT 09:09 AM EDT DISCLAIMER : THIS IS A VISIT SUMMARY EXTRACTED FROM THE [employer] CHART. IT IS NOT A COPY OF THE [employer] PROGRESS NOTE. MTDD
== END ==
LOC: M PAIN 14:15
PROVIDERS: ATTEND Nurse Practitioner Family
DX: G89.29 Other chronic pain (principal); M54.6 Pain in thoracic spine; M50.10 Cervical disc disorder with radiculopathy, unspecified cervical region; F41.8 Other specified anxiety disorders; E66.01 Morbid (severe) obesity due to excess calories; F17.210 Nicotine dependence, cigarettes, uncomplicated; Z88.2 Allergy status to sulfonamides; Z88.8 Allergy status to other drugs, medicaments and biological substances; Z91.02 Food additives allergy status; Z79.899 Other long term (current) drug therapy

== ENCOUNTER → 2017-02-10 | Outpatient (CLI) | payer OTHER ==
--- NOTE | 2017-02-23 | ECWPNPC ---
PATIENT NAME: SEFERINO PABLO : 1985 GENDER: MALE VISIT DATE: 02/10/2017 DISCHARGE DATE: 02/10/17 0958 VISIT LOCKED DATE TIME: PHYSICIAN: AUGUSTIN LEVIN RESOURCE: AUGUSTIN LEVIN REASON FOR APPOINTMENT 1. BACK HISTORY OF PRESENT ILLNESS HISTORY OF PRESENT ILLNESS: PAIN THE PATIENT DESCRIBES THE PAIN... FALL RISK SCREENING: SCREENING :NO FALLS IN THE PAST YEAR TODAY'S VISIT: NOTES: RATES PAIN LEVEL TODAY 8/10. NOTES PAIN AREAS IN MIDTHRORACIC REGION WITHRADIATION TO RIGHT RIBS, AT BASE OF NECK AND AT CENTER LOWER BACK. HARDEST THING IS TO BEND FORWARD AND PUT ON SHOES. HARD TO GO UP AND DOWN STAIRS. . CURRENT MEDICATIONS TAKING ACETAMINOPHEN EXTRA STRENGTH 500 MG TABLET 1 TABLET NEEDED ORALLY EVERY 6 HRS TAKING ALBUTEROL SULFATE 0.63 MG/3ML NEBULIZATION SOLUTION 3 ML NEEDED INHALATION EVERY 6 HRS TAKING HYDROXYZINE HCL 25 MG TABLET 1 TABLET NEEDED ORALLY EVERY 8 HRS TAKING TRAMADOL HCL 50 MG TABLET 1 TABLET NEEDED ORALLY EVERY 8-12 HRS MDD=2 TAKING IBUPROFEN 200 MG TABLET 1 TABLET WITH FOOD OR MILK NEEDED ORALLY EVERY 6 HRS NOT-TAKING BACLOFEN 10 MG TABLET 1 TABLET WITH FOOD OR MILK ORALLY BID NOT-TAKING KETOROLAC TROMETHAMINE 10 MG TABLET 1 TABLET WITH FOOD OR MILK NEEDED ORALLY EVERY 8 HRS NOT-TAKING NORCO 10-325 MG TABLET 1 TABLET NEEDED ORALLY Q 8 HRS PRN PAIN MDD=3 NOT-TAKING CYCLOBENZAPRINE HCL 10 MG TABLET 1 TABLET NEEDED ORALLY THREE TIMES A DAY, NOTES: DID NOT WORK AT ALL NOT-TAKING DICLOFENAC SODIUM 75 MG TABLET DELAYED RELEASE 1 TABLET ORALLY TWICE A DAY NOT-TAKING ROBAXIN-750 750 MG TABLET 1 TABLET ORALLY EVERY 4 HRS MEDICATION LIST REVIEWED AND RECONCILED WITH THE PATIENT PAST MEDICAL HISTORY PSORIASIS (DIAGNOSED 2009) CHILDHOOD ASTHMA ALLERGIES SULFA (FOR ALLERGY USE ONLY): RASH: ALLERGY PERTUSSIS: NEAR A CHILD: ALLERGY MINT: RASH AROUND LIPS: ALLERGY RED DYE: RASH: ALLERGY SOCIAL HISTORY GENERAL: TOBACCO USE ARE YOU A:CURRENT SMOKER HOW OFTEN DO YOU SMOKE CIGARETTES?EVERY DAY HOW MANY CIGARETTES A DAY DO YOU SMOKE?6-10 ARE YOU INTERESTED IN QUITTING?READY TO QUIT PATIENT COUNSELED ON THE DANGERS OF TOBACCO USE AND URGED TO QUIT:09/17/2016 COUNSELED THE PATIENT ON TOBACCO USE, CESSATION [id number]/23/2017 ALCOHOL SCREENING DID YOU HAVE A DRINK CONTAINING ALCOHOL IN THE PAST YEAR?NO POINTS0 INTERPRETATIONNEGATIVE RECREATIONAL DRUG USE DRUG USE?NO CAFFEINE CAFFEINE USE?YES MOS[employer] [id number] LUTHERAN LANGUAGE LANGUAGES SPOKEN:GAMBIAN LEARNING BARRIERS / SPECIAL NEEDS BARRIERS TO LEARNING?NO HEARING IMPAIRED?NO VISION IMPAIRED?YES COGNITIVELY IMPAIRED?NO READINESS TO LEARN?YES LEARNING PREFERENCES?NO LEARNING CAPABILITIES PRESENT?YES EMOTIONAL BARRIERS?NO SPECIAL DEVICES?NO SALESFORCE DEVELOPER NEEDED?NO PAIN CLINIC PFS, CLERGY, PUBLIC HEALTH REFERRALS PFS REFERRAL NEEDED?NO CLERGY REFERRAL NEEDED?NO PUBLIC HEALTH REFERRAL NEEDED?NO WAS THE PROVIDER NOTIFIED OF ANY PERTINENT INFO?NO HAS THE PATIENT BEEN EDUCATED REGARDING HIS/HER PLAN OF CARE?YES HAS THE PATIENT BEEN EDUCATED REGARDING PAIN, THE RISK FOR PAIN, THE IMPORTANCE OF EFFECTIVE PAIN MANAGEMENT, AND THE PAIN ASSESSMENT PROCESS?YES PATIENT: ____. ADVANCE DIRECTIVES HEALTH CARE PROXY?NO WOULD YOU LIKE MORE INFORMATION?NO DOES NOT CURRENTLY HAVE PAPERWORK BUT IS PLANNING TO WORK ON THIS WITH HIS FAMILY SOON. DO YOU HAVE A DNR?NO WOULD YOU LIKE MORE INFORMATION?NO LIVING WILL?NO WOULD YOU LIKE MORE INFORMATION?NO POWER OF COMMUNITY OUTREACH WORKER?NO WOULD YOU LIKE MORE INFORMATION?NO REVIEW OF SYSTEMS REVIEWED BY: PROVIDER: . CONSTITUTIONAL: ANY CHANGE IN YOUR MEDICAL CONDITION? NO . CHILLS NO . FEVER NO . INFECTION: DO YOU HAVE NEW INFECTIONS? NO . DO YOU HAVE HISTORY OF MRSA? NO . MUSCULOSKELETAL: ANY NEW PATTERNS OF PAIN OR NUMBNESS? NO . GASTROENTEROLOGY: ANY NEW CHANGE IN BOWEL CONTROL? NO . GENITOURINARY: ANY NEW CHANGE IN BLADDER CONTROL? NO . IS THERE A CHANCE YOU COULD BE ? NO . HEMATOLOGY/LYMPH: DO YOU TAKE ANY BLOOD THINNERS? (FOR EXAMPLE- COUMADIN, PLAVIX, AGGRENOX, PLATEL, PRADAXA, OR XARELTO) NO . WHEN WAS YOUR LAST DOSE? DATE: TIME: . NEUROLOGY: HAVE YOU FALLEN IN THE PAST 6 MONTHS? NO . ANY NEW EXTREMITY NUMBNESS OR WEAKNESS? NO . CARDIOLOGY: DO YOU HAVE A PACEMAKER OR DEFIBRILLATOR? NO . RESPIRATORY: HAVE YOU BEEN SICK IN THE PAST WEEK? NO . FEVER NO . FLU LIKE SYMPTOMS? NO . ASTHMA RECENT FLAIR WITH LAST RESP ILLNESS . DO YOU USE ANY TYPE OF TOBACCO (SMOKE, SMOKELESS, CHEW)? IS WORKING ON SMOKING CESSATION . COUGH NO . INTEGUMENTARY: DO YOU HAVE ANY RASHES OR OPEN SORES? YES - PRIMARILY ON HANDS - WEARS GLOVES TO PROTECT THEM . ALLERGIC/IMMUNO: ARE YOU ALLERGIC TO SHELLFISH OR IV DYE? NO . ANY NEW ALLERGIES? NO . PSYCHIATRIC: DO YOU HAVE THOUGHTS OF HURTING YOURSELF OR SOMEONE ELSE? NO . ARE YOU ABUSED, NEGLECTED, OR IN AN UNSAFE ENVIRONMENT? NO . ENDOCRINOLOGY: ARE YOU DIABETIC? NO . OTHER: DO YOU NEED ANY PRESCRIPTIONS? YES . IF YES, PLEASE LIST: TRAMADOL AND HYDROXYZINE . ANY NEW PROBLEMS WITH YOUR MEDICATIONS? NO . WHEN DID YOU LAST EAT? ____ . WHEN DID YOU LAST DRINK? ____ . WHAT DID YOU LAST DRINK? ____ . NAME OF PERSON DRIVING YOU HOME? ____ . DO YOU HAVE ANY OTHER QUESTIONS OR CONCERNS NO . VITAL SIGNS WT 323 LBS, HT 75.25 IN, BMI 40.10 INDEX, BP 146/85 MM HG, HR 68 /MIN, RR 18 /MIN, TEMP 98.1 F, OXYGEN SAT % 95%, SAFE IN ENV? (Y/N) YES, NA INITIALS MA 09:28, REVIEWED BY: DIANE. EXAMINATION GENERAL EXAMINATION: CHEST:EXQUISITELY TENDER ACROSS RIGHT POST ERIOR CHEST WALL. . LUNGS:BILATERAL WHEEZES, RIGHT > LEFT . MUSCULOSKELETAL:MUSCLE STRENGTH TESTING 5/5 BILATERAL UPPER AND LOWER EXTREMITIES. TENDER TO PALPATION OVER LUMBAR SPINOUS PROCESSES. SLOW TO RISE TO STANDING POSITION. POSTURE SLUMPED. GAIT NONANTALGIC. CERVICALPOINT TENDER OVER MID CERVICAL SPINOUS PROCESSES . SKIN:SCALY ERYTHEMATOUS PATCHES NOTED OVER BOTH HANDS. VINYL GLOVES WORN BILATERALY. ASSESSMENTS NECK PAIN - M54.2 (PRIMARY) THORACIC SPINE PAIN - M54.6 CERVICAL RADICULOPATHY DUE TO INTERVERTEBRAL DISC DISORDER - M50.10 THORACIC RADICULOPATHY - M54.14 TREATMENT NECK PAIN REFILL HYDROXYZINE HCL TABLET, 25 MG, 1 TABLET NEEDED, ORALLY, EVERY 8 HRS, 30 DAY(S), 90, REFILLS 5 REFILL TRAMADOL HCL TABLET, 50 MG, 1 TABLET NEEDED, ORALLY, EVERY 8-12 HRS MDD=2, 30 DAY(S), 60, REFILLS 2 REFILL KETOROLAC TROMETHAMINE TABLET, 10 MG, 1 TABLET WITH FOOD OR MILK NEEDED, ORALLY, EVERY 8 HRS, 5 DAY(S), 15 TABLET, REFILLS 0 NOTES: KEEP ACTIVE, WALK EVERY DAY. PROCEDURE CODES FA211 ESTABILISHED PATIENT [facility] CHARGE DISPOSITION & COMMUNICATION FOLLOW UP 2-3 MONTHS (REASON: BACK PAIN) ELECTRONICALLY SIGNED BY MILAGROS SHARMA ON 02/22/2017 AT 07:11 PM EST DISCLAIMER : THIS IS A VISIT SUMMARY EXTRACTED FROM THE [employer] CHART. IT IS NOT A COPY OF THE [employer] PROGRESS NOTE. MTDD
== END ==
LOC: M PAIN 09:00
PROVIDERS: ATTEND Nurse Practitioner Family
DX: M54.2 Cervicalgia (principal); M54.6 Pain in thoracic spine; F17.210 Nicotine dependence, cigarettes, uncomplicated; Z79.891 Long term (current) use of opiate analgesic; Z79.899 Other long term (current) drug therapy; Z88.2 Allergy status to sulfonamides; Z88.8 Allergy status to other drugs, medicaments and biological substances; Z91.09 Other allergy status, other than to drugs and biological substances; Z91.018 Allergy to other foods